=== PATIENT | male | born 1995 | race Caucasian/White ===

== ENCOUNTER 2018-07-13 09:41 | Emergency (ER) | payer SELFPAY ==
[2018-07-13 09:56] VITALS: BP 121/66
--- NOTE | 2018-07-13 10:42 | UC ---
HPI Wound/Suture Re-check - HPI Summary HPI Summary: Patient cut his finger on a kitchen knife last week. he did not have it sutured , today he presents with chils and general feeling of malaise. finger is scabbed , lennox-wound slightly erythemic and , non tender. - History Of Current Complaint Chief Complaint: UCLaceration Stated Complaint: LEFT MID FINGER LACERATION Time Seen by Provider: 07/13/18 10:29 Hx Obtained From: Patient Onset/Duration: Sudden Onset, Lasting Days Severity: Moderate Pain Intensity: 6 - Allergies/Home Medications Allergies/Adverse Reactions: Allergies Allergy/AdvReac Type Severity Reaction Status Date / Time No Known Allergies Allergy Verified 07/13/18 09:53 Home Medications: Home Medications NK [No Home Medications Reported] 07/13/18 [History Confirmed 07/13/18] PMH/Surg Hx/FS Hx/Imm Hx Previously Healthy: Yes - Surgical History Surgical History: Yes Surgery Procedure, Year, and Place: right knee 2012 - Family History Known Family History: Positive: Hypertension - Social History Alcohol Use: Rare Substance Use Type: Marijuana Smoking Status (MU): Light Every Day Tobacco Smoker Type: Cigarettes Review of Systems All Other Systems Reviewed And Are Negative: Yes Constitutional: Positive: Chills, Fatigue Skin: Positive: Negative Eyes: Positive: Negative ENT: Positive: Sore Throat, Nasal Discharge Respiratory: Positive: Cough Cardiovascular: Positive: Negative Genitourinary: Positive: Negative Motor: Positive: Negative Neurovascular: Positive: Negative Musculoskeletal: Positive: Negative Neurological: Positive: Negative Psychological: Positive: Negative Is Patient Immunocompromised?: No Physical Exam Triage Information Reviewed: Yes Appearance: Well-Nourished, Ill-Appearing, Pain Distress Vital Signs: Initial Vital Signs Temp 97.4 F 07/13/18 09:52 Pulse 53 07/13/18 09:52 Resp 16 07/13/18 09:52 BP 121/66 07/13/18 09:52 Pulse Ox 99 07/13/18 09:52 Vital Signs Reviewed: Yes Eye Exam: Normal ENT: Positive: Pharyngeal erythema, TMs normal Dental Exam: Normal Neck exam: Normal Neck: Positive: Supple, Nontender, No Lymphadenopathy Respiratory: Positive: Chest non-tender, Lungs clear, Normal breath sounds, No respiratory distress, No accessory muscle use Cardiovascular Exam: Normal Cardiovascular: Positive: RRR, No Murmur, Pulses Normal Abdominal Exam: Normal Abdomen Description: Positive: Nontender, No Organomegaly, Soft Bowel Sounds: Positive: Present Musculoskeletal Exam: Normal Neurological Exam: Normal Psychological Exam: Normal Skin Exam: Normal Course/Dx - Course Course Of Treatment: hx obtained, exam performed ,meds reviewed, wound soaked, rapid flu obtained. - Differential Dx - Laceration/Wound Differential Diagnoses: Cellulitis, Dehiscence, Healing Wound, Joint Infection - Diagnosis Provider Diagnosis: Delayed wound healing, Malaise and fatigue Discharge - Sign-Out/Discharge Documenting (check all that apply): Patient Departure All imaging exams completed and their final reports reviewed: No Studies - Discharge Plan Condition: Stable Disposition: HOME Patient Education Materials: Chronic Wound Care (ED) Forms: *Work Release Referrals: No Primary Care Phys,NOPCP [Primary Care Provider] - Additional Instructions: Soak your finger daily and keep it covered. Get plenty of rest today and increase fluid intake follow up as needed. - Billing Disposition and Condition Condition: STABLE Disposition: Home
[2018-07-13 10:55] LABS: Influenza A Molecular NEGATIVE (Negative); Influenza B Molecular NEGATIVE (Negative)
== END 2018-07-13 11:14 | disposition home or self-care (01) ==
LOC: UCCORT 09:41
DX: S61.213A Laceration without foreign body of left middle finger without damage to nail, initial encounter (principal); R53.81 Other malaise; R53.83 Other fatigue; J02.9 Acute pharyngitis, unspecified; R68.83 Chills (without fever); R05 Cough; R09.89 Other specified symptoms and signs involving the circulatory and respiratory systems; F17.210 Nicotine dependence, cigarettes, uncomplicated; W26.0XXA Contact with knife, initial encounter; Y92.89 Other specified places as the place of occurrence of the external cause
CPT/HCPCS: 99211; G0463

== ENCOUNTER 2019-05-02 09:51 | Emergency (ER) | payer OTHER ==
[2019-05-02 10:14] VITALS: BP 125/74
[2019-05-02] MEDS ORDERED: Ketorolac *IM* INJ* 60 MG/2 ML VIAL IM ONE (10:34)
[2019-05-02] MEDS ORDERED: Al Hydrox/Mg Hydrox/Simet LIQ* 30 ML UDC PO ONE (10:34)
--- NOTE | 2019-05-02 10:37 | UC ---
Cardiac HPI - HPI Summary HPI Summary: 24 yo with onset of low central to left sided chest pain, onset about 7:30 this morning. He has had about 6 or 7 episodes of emesis over the past 3 days, last was yesterday at noon. He has eaten since then and has tolerated food. Pain radiates to the back and he describes it as a stabbing sensation with radiation to the back shoulder blade area. Hx of high caffeine uptake, but last was 2 weeks ago; does not use nsaid's, no alcohol. No hx of ulceration but he has had reflux in the past. - History of Current Complaint Chief Complaint: UCChestPain Stated Complaint: CHEST PAIN Time Seen by Provider: 05/02/19 10:05 Hx Obtained From: Patient, Family/Disposition Clerk - here with his partner and infant child Onset/Duration: Sudden Onset, Lasting Hours Timing: Constant Pain Intensity: 6 Chest Pain Location: Lower Sternal, Left Lateral Character: Sharp/Stabbing Aggravating Factor(s): Deep Breaths Alleviating Factor(s): Rest Associated Signs & Symptoms: Positive: Chest Pain, Cough - has had cough for the past several days; children are unwell - Risk Factors Pulmonary Embolism Risk Factors: Smoking Cardiac Risk Factors: Smoking TAD Risk Factors: Negative - Allergy/Home Medications Allergies/Adverse Reactions: Allergies Allergy/AdvReac Type Severity Reaction Status Date / Time No Known Allergies Allergy Verified 07/13/18 09:53 PMH/Surg Hx/FS Hx/Imm Hx Previously Healthy: Yes - Surgical History Surgical History: Yes Surgery Procedure, Year, and Place: right knee 2012 - Family History Known Family History: Positive: Hypertension - Social History 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 Lives: With Family Alcohol Use: Rare Substance Use Type: Marijuana Substance Use Comment - Amount & Last Used: rare Smoking Status (MU): Light Every Day Tobacco Smoker Type: Cigarettes Review of Systems All Other Systems Reviewed And Are Negative: Yes Constitutional: Positive: Negative Skin: Positive: Negative Eyes: Positive: Negative ENT: Positive: Negative Respiratory: Positive: Cough Cardiovascular: Positive: Chest Pain Gastrointestinal: Positive: Vomiting Genitourinary: Positive: Negative Motor: Positive: Negative Neurovascular: Positive: Negative Musculoskeletal: Positive: Negative Neurological: Positive: Negative Psychological: Positive: Negative Is Patient Immunocompromised?: No Physical Exam Triage Information Reviewed: Yes Appearance: Ill-Appearing - flushed and looks unwell, sweating., Thin Vital Signs: Initial Vital Signs Temp 98.3 F 05/02/19 10:07 Pulse 54 05/02/19 10:07 Resp 18 05/02/19 10:07 BP 125/74 05/02/19 10:07 Pulse Ox 96 05/02/19 10:07 Eye Exam: Normal Eyes: Positive: Conjunctiva Clear ENT: Positive: Pharynx normal, TMs normal Neck: Positive: Supple, Nontender, No Lymphadenopathy Respiratory Exam: Other - TTP mid left rhomboid area Respiratory: Positive: Lungs clear, Normal breath sounds Cardiovascular: Positive: RRR, No Murmur, Bradycardia Abdomen Description: Positive: Nontender, No Organomegaly, Soft Musculoskeletal Exam: Normal Neurological Exam: Normal Neurological: Positive: Alert, Muscle Tone Normal Psychological Exam: Normal Skin Exam: Normal Diagnostics - Laboratory Lab Results: rapid flu negative - Radiology No standard instances Radiology Interpretation Completed By: Radiologist Summary of Radiographic Findings: Per Dr. Worthington: no evidence of acute disease , negative exam. - EKG Cardiac Rate: NL Cardiac Rhythm: Sinus: Normal Ectopy: None ST Segment: Non-Specific Re-Evaluation - Re-Evaluation First Eval Change: Improved - mild decrease in pain, although still present on exam. - Assessment/Plan Course Of Treatment: Toradol blunted pain but did not resolve it, nor did antacids. Chest xray negative. Discussed ER evaluation versus continued monitoring at home. He elects home with monitoring, and will proceed to the emergency room if symptoms do not mariana or worsen. - Differential Diagnoses - Chest Pain Differential Diagnosis/HQI/PQRI: Chest Wall, Lower Respiratory Infection - Clinical Impression Provider Diagnosis: Chest pain Discharge ED - Sign-Out/Discharge Documenting (check all that apply): Patient Departure All imaging exams completed and their final reports reviewed: Yes - Discharge Plan Condition: Stable Disposition: HOME Patient Education Materials: Chest Pain (ED) Referrals: No Primary Care Phys,NOPCP [Primary Care Provider] - Additional Instructions: The cause of your pain is not clear, but does not appear to be related to an underlying problem with your heart of lungs. You have been given ketorolac here with partial reduction in pain. If you have continued pain or develop new symptoms, please go directly to the emergency room for evaluation. - Billing Disposition and Condition Condition: STABLE Disposition: Home
[2019-05-02 11:13] LABS: Influenza A Molecular NEGATIVE (Negative); Influenza B Molecular NEGATIVE (Negative)
== END 2019-05-02 12:03 | disposition home or self-care (01) ==
LOC: UCEAST 09:51
DX: R07.9 Chest pain, unspecified (principal); R05 Cough; R11.10 Vomiting, unspecified; F17.210 Nicotine dependence, cigarettes, uncomplicated
CPT/HCPCS: 71046; 93005; 99212; A9270-GY; G0463; J1885